=== PATIENT | male | born 1980 | race American Indian/Alaskan Native ===

== ENCOUNTER 2022-01-17 04:36 | Emergency (ER) | payer SELFPAY ==
[2022-01-17 04:50] VITALS: BP 148/100
[2022-01-17 05:27] LABS: Basophils # (Auto) 0.1 K/mm3 (0.0-0.1); Basophils % (Auto) 0.8 % (0.0-1.8); Eosinophils # (Auto) 0.1 K/mm3 (0.0-0.4); Hematocrit 37.4 % (35.5-45.6); Hemoglobin 12.7 gm/dl (11.8-15.2); Lymphocytes # (Auto) 2.8 K/mm3 (1.2-5.4); Lymphocytes % (Auto) 31.5 % (13.4-35.0); Mean Corpuscular HGB Conc 34 % (32-34); Mean Corpuscular Volume 73 fl (84-94); Monocytes # (Auto) 0.8 K/mm3 (0.0-0.8); Monocytes % (Auto) 9.1 % (0.0-7.3); Platelet Count 357 K/mm3 (140-440); Red Blood Count 5.14 M/mm3 (3.65-5.03); Red Cell Distribution Width 17.9 % (13.2-15.2)
[2022-01-17 05:44] LABS: Alanine Aminotransferase 30 units/L (7-56); Albumin 4.3 g/dL (3.9-5); BUN/Creatinine Ratio 9; Blood Urea Nitrogen 8 mg/dL (9-20); Calcium 9.6 mg/dL (8.4-10.2); Hemolysis Index 16
[2022-01-17 09:10] LABS: Bacteria,Urine 1+ /HPF (Negative); Mucus,Urine FEW /HPF
[2022-01-17] MEDS ORDERED: ONDANSETRON 4 MG ODT TAB PO ONE (09:13)
[2022-01-17] MEDS ORDERED: HYDROcodone/ACETAMINOPHEN 10-325MG TAB PO ONE (09:13)
--- NOTE | 2022-01-17 09:14 | Emergency Department Report ---
ED Abdominal Pain HPI - General Chief Complaint: Abdominal Pain Stated Complaint: AB PAIN Time Seen by Provider: 01/17/22 07:57 Source: patient Mode of arrival: Ambulatory Limitations: No Limitations - Related Data Allergies Allergy/AdvReac Type Severity Reaction Status Date / Time tramadol Allergy Unknown Verified 01/17/22 04:51 ED Review of Systems ROS: Stated complaint: AB PAIN Other details as noted in HPI ED Physical Exam - General Limitations: No Limitations ED Course Vital Signs 01/17/22 04:40 Temperature 98.4 F Pulse Rate 120 H Respiratory 18 Rate Blood Pressure 148/100 O2 Sat by Pulse 92 Oximetry ED Medical Decision Making - Lab Data Result diagrams: 01/17/22 05:15 01/17/22 05:15 Critical care attestation.: If time is entered above; I have spent that time in minutes in the direct care of this critically ill patient, excluding procedure time. ED Disposition Clinical Impression: Abdominal pain Disposition: 01 HOME / SELF CARE / HOMELESS Is pt being admited?: No Does the pt Need Aspirin: No Condition: Stable Instructions: Abdominal Pain, Adult, Preventing Gastrointestinal Problems During Exercise Additional Instructions: AVOID ALCOHOL FOLLOW UP WITH PCP NEXT WEEK REFERRAL BELOW Referrals: EARNEST LARA MD [Staff Physician] - 3-5 Days Forms: Work/School Release Form(ED) Time of Disposition: 13:41
[2022-01-17 10:17] LABS: Bilirubin,Urine Negative (Negative); Blood,Urine Negative (Negative); Color,Urine Yellow (Yellow); Urobilinogen,Urine < 2.0 mg/dL (<2.0)
[2022-01-17] MEDS ORDERED: SODIUM CHLORIDE 0.9% 1000 ML 1,000 ML IV ONE (10:18)
== END 2022-01-17 13:45 | disposition home or self-care (01) ==
LOC: ED 04:36
DX: R10.9 Unspecified abdominal pain (principal)
CPT/HCPCS: 36415; 80053; 81001; 83690; 85025; 87086; 96360; 99283; J7030; J3490; Q0162

== ENCOUNTER 2022-04-08 08:35 | Emergency (ER) | payer SELFPAY ==
[2022-04-08 10:32] LABS: Alanine Aminotransferase 44 units/L (7-56); Albumin 4.1 g/dL (3.9-5); BUN/Creatinine Ratio 8; Blood Urea Nitrogen 8 mg/dL (9-20); Hemolysis Index 2
[2022-04-08 10:34] LABS: Bilirubin,Direct < 0.2 mg/dL (0-0.2)
[2022-04-08 10:41] LABS: Basophils % (Auto) 0.6 % (0.0-1.8); Eosinophils # (Auto) 0.2 K/mm3 (0.0-0.4); Eosinophils % (Auto) 4.3 % (0.0-4.3); Hematocrit 37.1 % (35.5-45.6); Hemoglobin 11.7 gm/dl (11.8-15.2); Lymphocytes # (Auto) 1.7 K/mm3 (1.2-5.4); Lymphocytes % (Auto) 32.6 % (13.4-35.0); Mean Corpuscular HGB Conc 32 % (32-34); Monocytes # (Auto) 0.7 K/mm3 (0.0-0.8); Platelet Count 270 K/mm3 (140-440); Red Blood Count 5.31 M/mm3 (3.65-5.03); Red Cell Distribution Width 16.9 % (13.2-15.2)
[2022-04-08 10:45] LABS: Mean Corpuscular Volume 70 fl (84-94)
[2022-04-08 10:48] LABS: INR 0.9 (0.87-1.13)
[2022-04-08] MEDS ORDERED: SODIUM CHLORIDE 0.9% 1000 ML 1,000 ML IV ONE (22:17)
[2022-04-08] MEDS ORDERED: HYDROmorphone 0.5 MG/0.5 ML INJ IV ONE (22:17)
[2022-04-08] MEDS ORDERED: PANTOPRAZOLE 40 MG INJ IV ONE (22:17)
--- NOTE | 2022-04-08 22:18 | Emergency Department Report ---
ED General Adult HPI - General Chief complaint: Abdominal Pain Stated complaint: Left-sided abdominal pain Time Seen by Provider: 04/08/22 22:08 Source: patient, RN notes reviewed Mode of arrival: Ambulatory Limitations: No Limitations - History of Present Illness Initial comments: This is a 41-year-old gentleman with a history of alcoholism, and pancreatitis, who also has a possible history of GERD. He presents to the department today with a complaint of left-sided abdominal pain. He reports it feels similar to his prior episodes of pancreatitis. He reports his pain typically improves with Dilaudid. He currently denies headache, neck pain, vomiting, urinary symptoms and testicular pain. He felt much improved after Dilaudid here in the emergency room. He works as a reach lift truck driver. He is not COVID-19 vaccinated. He has had COVID at least once. He denies COVID symptoms at this time -: Gradual, days(s) Location: abdomen Radiation: abdomen Severity scale (0 -10): 5 Consistency: constant Improves with: medication Worsens with: other (Worsens with palpation) - Related Data Previous Rx's Medication Instructions Recorded Last Taken Type Acetaminophen [Non-Aspirin Extra 500 mg PO Q6HR PRN #30 tablet 04/08/22 Unknown Rx Strength] Multivitamin with Folic Acid [[facility] 400 mcg PO QDAY #30 tablet 04/08/22 Unknown Rx One Daily Essential Tablet] Ondansetron [Zofran Odt] 4 mg PO Q8HR PRN #20 tab.rapdis 04/08/22 Unknown Rx Pantoprazole [Protonix TAB] 20 mg PO BID #60 tab 04/08/22 Unknown Rx chlordiazePOXIDE [Librium] 25 mg PO Q6H PRN #25 capsule 04/08/22 Unknown Rx Allergies Allergy/AdvReac Type Severity Reaction Status Date / Time tramadol Allergy Unknown Verified 01/17/22 04:51 ED Review of Systems ROS: Stated complaint: PANCREATITIS Other details as noted in HPI Comment: All other systems reviewed and negative Gastrointestinal: abdominal pain. denies: hematemesis, melena, hematochezia Genitourinary: denies: dysuria, testicular pain Musculoskeletal: denies: back pain ED Past Medical Hx - Past Medical History Hx Hypertension: Yes Additional medical history: pancreatitis, gerd - Social History Smoking Status: Never Smoker - Medications Home Medications: Home Medications Medication Instructions Recorded Confirmed Last Taken Type Acetaminophen [Non-Aspirin Extra 500 mg PO Q6HR PRN #30 tablet 04/08/22 Unknown Rx Strength] Multivitamin with Folic Acid [[facility] 400 mcg PO QDAY #30 tablet 04/08/22 Unknown Rx One Daily Essential Tablet] Ondansetron [Zofran Odt] 4 mg PO Q8HR PRN #20 tab.rapdis 04/08/22 Unknown Rx Pantoprazole [Protonix TAB] 20 mg PO BID #60 tab 04/08/22 Unknown Rx chlordiazePOXIDE [Librium] 25 mg PO Q6H PRN #25 capsule 04/08/22 Unknown Rx ED Physical Exam - General Limitations: No Limitations General appearance: alert, in no apparent distress, obese - Head Head exam: Present: atraumatic, normocephalic - Eye Eye exam: Present: normal appearance, EOMI. Absent: nystagmus - ENT ENT exam: Present: normal exam, normal orophraynx, mucous membranes moist, normal external ear exam - Neck Neck exam: Present: normal inspection, full ROM. Absent: tenderness, meningismus - Respiratory Respiratory exam: Present: normal lung sounds bilaterally. Absent: respiratory distress, wheezes, rales, rhonchi, stridor, decreased breath sounds - Cardiovascular Cardiovascular Exam: Present: regular rate, normal rhythm, normal heart sounds. Absent: bradycardia, tachycardia, irregular rhythm, systolic murmur, diastolic murmur, rubs, gallop - GI/Abdominal GI/Abdominal exam: Present: soft, tenderness, other (There is left flank and left lower quadrant tenderness. There is no rebound, guarding or peritoneal signs). Absent: distended, guarding, rebound, rigid, pulsatile mass - Rectal Rectal exam: Present: deferred - exam: Present: normal inspection (Patient provides consent for genital examination. Chaperoned by inspector subassembly Aly), other (There is normal testicular lie. There is normal cremasteric reflex. There is no testicular tenderness. There is no testicular swelling). Absent: testicular tenderness External exam: Present: normal external exam. Absent: erythema, swelling, lacerations, ecchymosis - Extremities Exam Extremities exam: Present: normal inspection, full ROM, other (2+ pulses noted in the bilateral upper and lower extremities. There is no palpable cord. negative Homans sign. Muscular compartments are soft. The pelvis is stable.). Absent: pedal edema, joint swelling, calf tenderness - Back Exam Back exam: Present: normal inspection, full ROM. Absent: tenderness, CVA tenderness (R), CVA tenderness (L), paraspinal tenderness, vertebral tenderness - Neurological Exam Neurological exam: Present: alert, oriented X3, normal gait, other (No facial droop. Tongue midline. Extraocular movements intact bilaterally. Facial sensation intact to light touch in V1, V2, V3 distribution bilaterally. 5 and a 5 strength in 4 extremities. Sensation intact to light touch in 4 extremities.). Absent: motor sensory deficit - Psychiatric Psychiatric exam: Present: anxious - Skin Skin exam: Present: warm, dry, intact, normal color. Absent: rash ED Course Vital Signs 04/08/22 04/08/22 08:51 22:45 Temperature 98.8 F 98.2 F Pulse Rate 87 105 H Respiratory 12 14 Rate Blood Pressure 125/69 127/89 [Right] O2 Sat by Pulse 100 97 Oximetry - Reevaluation(s) Reevaluation #1: 04/08/22 23:54 Differential diagnosis, including but not limited to: GERD, gastritis, hiatal hernia, pancreatitis, renal colic, obstruction, colitis, diverticulitis, pyelonephritis Assessment and plan: 41-year-old gentleman, with left-sided abdominal tenderness, without rebound, guarding or peritoneal signs, without irritative or obstructive urinary symptoms, and normal testicular examination. His laborato ry studies are essentially nonactionable. He felt improved after hydromorphone. Sterile pyuria appreciated. There is no CVA tenderness. This is unlikely to be a kidney infection. The patient denies irritative and obstructive urinary symptoms. CT scan abdomen pelvis suggests esophagitis. On final reassessment, patient resting comfortably on stretcher, on cell phone, without active vomiting, and in no acute distress. He may start Tylenol, Protonix, multivitamin, diet lifestyle modifications, and he may follow-up with outpatient GI. He is observed in this department for hours without clinical decompensation, and is suitable to follow-up at this point in time. Return precautions are reviewed. All questions answered - Pulse Oximetry Interpretation Digit-Finger Initial Pulse Oximetry Readin O2 Sat by Pulse Oximetry: 99 Actions Taken: none ED Medical Decision Making - Lab Data Result diagrams: 04/08/22 09:49 04/08/22 09:49 Vital Signs 04/08/22 04/08/22 08:51 22:45 Temperature 98.8 F 98.2 F Pulse Rate 87 105 H Respiratory 12 14 Rate Blood Pressure 125/69 127/89 [Right] O2 Sat by Pulse 100 97 Oximetry Lab Results 04/08/22 04/08/22 04/08/22 Range/Units 09:49 09:49 09:49 WBC 5.1 (4.5-11.0) K/mm3 RBC 5.31 H (3.65-5.03) M/mm3 Hgb 11.7 L (11.8-15.2) gm/dl Hct 37.1 (35.5-45.6) % MCV 70 L (84-94) fl MCH 22 L (28-32) pg MCHC 32 (32-34) % RDW 16.9 H (13.2-15.2) % Plt Count 270 (140-440) K/mm3 Lymph % (Auto) 32.6 (13.4-35.0) % [place] % (Auto) 13.0 H (0.0-7.3) % Eos % (Auto) 4.3 (0.0-4.3) % Baso % (Auto) 0.6 (0.0-1.8) % Lymph # (Auto) 1.7 (1.2-5.4) K/mm3 [place] # (Auto) 0.7 (0.0-0.8) K/mm3 Eos # (Auto) 0.2 (0.0-0.4) K/mm3 Baso # (Auto) 0.0 (0.0-0.1) K/mm3 Seg Neutrophils % 49.5 (40.0-70.0) % Seg Neutrophils # 2.5 (1.8-7.7) K/mm3 PT 13.4 (12.2-14.9) Sec. INR 0.90 (0.87-1.13) Sodium 138 (137-145) mmol/L Potassium 4.1 (3.6-5.0) mmol/L Chloride 99.3 (98-107) mmol/L Carbon Dioxide 22 (22-30) mmol/L Anion Gap 21 mmol/L BUN 8 L (9-20) mg/dL Creatinine 1.0 (0.8-1.3) mg/dL Estimated GFR > 60 ml/min BUN/Creatinine Ratio 8 % Glucose 127 H (75-100) mg/dL Calcium 9.0 (8.4-10.2) mg/dL Total Bilirubin 0.30 (0.1-1.2) mg/dL Direct Bilirubin < 0.2 (0-0.2) mg/dL Indirect Bilirubin 0.1 mg/dL AST 52 H (5-40) units/L ALT 44 (7-56) units/L Alkaline Phosphatase 119 (35-129) units/L Total Protein 7.4 (6.3-8.2) g/dL Albumin 4.1 (3.9-5) g/dL Albumin/Globulin Ratio 1.2 % Lipase 42 (13-60) units/L Urine Color (Yellow) Urine Turbidity (Clear) Urine pH (5.0-7.0) Ur Specific [place] (1.003-1.030) Urine Protein (Negative) mg/dL Urine Glucose (UA) (Negative) mg/dL Urine Ketones (Negative) mg/dL Urine Blood (Negative) Urine Nitrite (Negative) Ur Reducing Substances Urine Bilirubin (Negative) Urine Ictotest Urine Urobilinogen (<2.0) mg/dL Ur Leukocyte Esterase (Negative) Urine WBC (Auto) (0.0-6.0) /HPF Urine RBC (Auto) (0.0-6.0) /HPF U Epithel Cells (Auto) (0-13.0) /HPF Urine Mucus /HPF 04/08/22 Range/Units 22:26 WBC (4.5-11.0) K/mm3 RBC (3.65-5.03) M/mm3 Hgb (11.8-15.2) gm/dl Hct (35.5-45.6) % MCV (84-94) fl MCH (28-32) pg MCHC (32-34) % RDW (13.2-15.2) % Plt Count (140-440) K/mm3 Lymph % (Auto) (13.4-35.0) % [place] % (Auto) (0.0-7.3) % Eos % (Auto) (0.0-4.3) % Baso % (Auto) (0.0-1.8) % Lymph # (Auto) (1.2-5.4) K/mm3 [place] # (Auto) (0.0-0.8) K/mm3 Eos # (Auto) (0.0-0.4) K/mm3 Baso # (Auto) (0.0-0.1) K/mm3 Seg Neutrophils % (40.0-70.0) % Seg Neutrophils # (1.8-7.7) K/mm3 PT (12.2-14.9) Sec. INR (0.87-1.13) Sodium (137-145) mmol/L Potassium (3.6-5.0) mmol/L Chloride (98-107) mmol/L Carbon Dioxide (22-30) mmol/L Anion Gap mmol/L BUN (9-20) mg/dL Creatinine (0.8-1.3) mg/dL Estimated GFR ml/min BUN/Creatinine Ratio % Glucose (75-100) mg/dL Calcium (8.4-10.2) mg/dL Total Bilirubin (0.1-1.2) mg/dL Direct Bilirubin (0-0.2) mg/dL Indirect Bilirubin mg/dL AST (5-40) units/L ALT (7-56) units/L Alkaline Phosphatase (35-129) units/L Total Protein (6.3-8.2) g/dL Albumin (3.9-5) g/dL Albumin/Globulin Ratio % Lipase (13-60) units/L Urine Color Yellow (Yellow) Urine Turbidity Clear (Clear) Urine pH 5.0 (5.0-7.0) Ur Specific [place] 1.015 (1.003-1.030) Urine Protein 30 mg/dl (Negative) mg/dL Urine Glucose (UA) Negative (Negative) mg/dL Urine Ketones Negative (Negative) mg/dL Urine Blood Negative (Negative) Urine Nitrite Negative (Negative) Ur Reducing Substances Not Reportable Urine Bilirubin Negative (Negative) Urine Ictotest Not Reportable Urine Urobilinogen < 2.0 (<2.0) mg/dL Ur Leukocyte Esterase Negative (Negative) Urine WBC (Auto) 41.0 H (0.0-6.0) /HPF Urine RBC (Auto) 2.0 (0.0-6.0) /HPF U Epithel Cells (Auto) 1.0 (0-13.0) /HPF Urine Mucus Few /HPF - Radiology Data Radiology results: pending, report reviewed, image reviewed CT ABDOMEN AND PELVIS WITH CONTRAST INDICATION / CLINICAL INFORMATION: Acute left-sided abdominal pain. TECHNIQUE: Axial CT images were obtained through the abdomen and pelvis after 100 mL Omnipaque [address] scans at this location are performed using CT dose reduction for ALARA by means of automated exposure control. The exam is mildly limited by motion artifact. COMPARISON: No ne available. FINDINGS: LOWER CHEST: Small/moderate-sized sliding-type hiatal hernia. Fluid-filled distal esophagus and esophageal wall thickening suggestive of reflux esophagitis. LIVER: Mild hepatomegaly and suspected mild diffuse hepatic steatosis. GALLBLADDER/BILIARY: No significant abnormality or evidence for biliary obstruction. PANCREAS: No significant abnormality. SPLEEN: No significant abnormality. ADRENALS: No significant abnormality. KIDNEYS/URETERS: No urolithiasis, hydronephrosis, solid renal mass or other significant abnormality. GI: No acute bowel inflammation, obstruction or evidence for ischemia. APPENDIX: No significant abnormality. PERITONEUM: No pneumoperitoneum, free peritoneal fluid or loculated fluid collection. LYMPH NODES: No significant adenopathy. AORTA / ARTERIES: No significant abnormality. URINARY BLADDER: No significant abnormality. REPRODUCTIVE ORGANS: No significant abnormality. SKELETAL SYSTEM: Lumbar degenerative spondylosis without acute or destructive osseous process. Suspected mild central canal stenosis at L5-S1 secondary to a broad-based disc bulge. ADDITIONAL FINDINGS: None. IMPRESSION: 1. No acute abdominopelvic process. 2. Hiatal hernia and likely associated distal esophageal reflux esophagitis. Signer Name: Glynn Petersen MD Signed: 04/08/2022 9:55 PM Workstation Name: [employer] Critical care attestation.: If time is entered above; I have spent that time in minutes in the direct care of this critically ill patient, excluding procedure time. ED Disposition Clinical Impression: Abdominal pain Disposition: 01 HOME / SELF CARE / HOMELESS Is pt being admited?: No Does the pt Need Aspirin: No Condition: Good Additional Instructions: Please avoid consumption of alcohol, tobacco, smoke products, heavy and spicy foods. Follow-up with a primary care doctor or GI physician within the next week. Have your primary care doctor or GI physician contact medical records department, to obtain copies of laboratory studies and radiology studies, to follow-up on nonemergent incidental abnormal findings. Take the prescribed medications as needed and directed. Please return to the emergency room right away with new pain, worsened pain, migration of pain, projectile vomiting, change in mental status, confusion, inability tolerate liquid feeds, new, worsened or different symptoms not present on the initial emergency room evaluation Referrals: EARNEST LARA MD [Primary Care Provider] - 3-5 Days [facility] [Provider Group] - 3-5 Days Forms: Work/School Release Form(ED)
--- NOTE | 2022-04-08 22:59 | Cat Scan Report ---
CT ABDOMEN AND PELVIS WITH CONTRAST INDICATION / CLINICAL INFORMATION: Acute left-sided abdominal pain. TECHNIQUE: Axial CT images were obtained through the abdomen and pelvis after 100 mL Omnipaque [address] scans at this location are performed using CT dose reduction for ALARA by means of automated exposure control. The exam is mildly limited by motion artifact. COMPARISON: None available. FINDINGS: LOWER CHEST: Small/moderate-sized sliding-type hiatal hernia. Fluid-filled distal esophagus and esoph ageal wall thickening suggestive of reflux esophagitis. LIVER: Mild hepatomegaly and suspected mild diffuse hepatic steatosis. GALLBLADDER/BILIARY: No significant abnormality or evidence for biliary obstruction. PANCREAS: No significant abnormality. SPLEEN: No significant abnormality. ADRENALS: No significant abnormality. KIDNEYS/URETERS: No urolithiasis, hydronephrosis, solid renal mass or other significant abnormality. GI: No acute bowel inflammation, obstruction or evidence for ischemia. APPENDIX: No significant abnormality. PERITONEUM: No pneumoperitoneum, free peritoneal fluid or loculated fluid collection. LYMPH NODES: No significant adenopathy. AORTA / ARTERIES: No significant abnormality. URINARY BLADDER: No significant abnormality. REPRODUCTIVE ORGANS: No significant abnormality. SKELETAL SYSTEM: Lumbar degenerative spondylosis without acute or destructive osseous process. Suspec aminata mild central canal stenosis at L5-S1 secondary to a broad-based disc bulge. ADDITIONAL FINDINGS: None. IMPRESSION: 1. No acute abdominopelvic process. 2. Hiatal hernia and likely associated distal esophageal reflux esophagitis. Signer Name: Glynn Petersen MD Signed: 04/08/2022 10:55 PM Workstation Name: [employer]
[2022-04-08 23:03] LABS: Mucus,Urine FEW /HPF
[2022-04-08 23:05] LABS: Color,Urine Yellow (Yellow)
[2022-04-08 23:06] LABS: Bilirubin,Urine Negative (Negative); Blood,Urine Negative (Negative); Urobilinogen,Urine < 2.0 mg/dL (<2.0)
[2022-04-09 00:33] VITALS: BP 110/78
== END 2022-04-09 00:30 | disposition home or self-care (01) ==
LOC: ED 08:35
DX: R10.32 Left lower quadrant pain (principal); I10 Essential (primary) hypertension; Z88.6 Allergy status to analgesic agent; Z79.899 Other long term (current) drug therapy
CPT/HCPCS: 36415; 74177; 80048; 80076; 81001; 83690; 85025; 85610; 87086; 96361; 96374; 96375; 99284; C9113; J1170; Q9967